=== PATIENT | female | born 1990 | race Two or more races ===

== ENCOUNTER 2021-12-03 09:38 | Emergency (ER) | payer OTHER ==
[~2021-12-03] VITALS: Ht 147.3 cm; Wt 55.3 kg
[2021-12-03] MEDS ORDERED: TUSSIN DM SYRU118 ML PO (11:53)
[2021-12-03] MEDS ORDERED: OSEL75CA PO (11:53)
== END 2021-12-03 12:34 | disposition home or self-care (01) ==
LOC: ER 09:38
DX: B34.9 Viral infection, unspecified (principal); Z20.822 Contact with and (suspected) exposure to COVID-19

== ENCOUNTER 2022-08-23 15:17 | Emergency (ER) | payer OTHER ==
[~2022-08-23] VITALS: Ht 162.6 cm; Wt 71.7 kg
[~2022-08-23 15:17] MED LIST: OSEL75CA PO; TUSSIN DM SYRU118 ML PO
[2022-08-23] MEDS ORDERED: ANALPRAM HC 2.5%4 GM RECTAL (17:13)
[2022-08-23] MEDS ORDERED: DULCOLAX STOOL100 M1 PO (17:13)
[2022-08-23] MEDS ORDERED: DICLOFENAC SODI75 MG PO (17:13)
== END 2022-08-23 18:10 | disposition home or self-care (01) ==
LOC: ER 15:17
DX: K64.8 Other hemorrhoids (principal)